=== PATIENT | female | born 1980 | race African-American/Black ===

== ENCOUNTER 2021-07-29 16:13 | Emergency (ER) | payer MEDICAID ==
[~2021-07-29] VITALS: Ht 162.6 cm; Wt 72.0 kg
[2021-07-29 16:30] VITALS: BP 167/108
[2021-07-29] MEDS ORDERED: PREDNISONE 20MG TABLET PO ONE (16:45)
[2021-07-29] MEDS ORDERED: ALBUTEROL (0.083%) 2.5MG/3ML NEB HHN ONE ×2 (16:45→17:30)
[2021-07-29] MEDS ORDERED: FLOV44 INH (17:32)
[2021-07-29] MEDS ORDERED: ALBU18HF2 IH (17:32)
[2021-07-29] MEDS ORDERED: P20 MT (17:32)
== END 2021-07-29 17:54 | disposition home or self-care (01) ==
LOC: ER 16:13
DX: J45.901 Unspecified asthma with (acute) exacerbation (principal); R03.0 Elevated blood-pressure reading, without diagnosis of hypertension; Z98.890 Other specified postprocedural states
CPT/HCPCS: 94640; 99283; J7512; Z7610